=== PATIENT | female | born 1995 | race Caucasian/White ===

== ENCOUNTER 2021-02-18 16:24 | Outpatient (REF) | payer OTHER, SELFPAY ==
[2021-02-18 16:41] LABS: IDNOW Serial# 08D9AD1C; Strep A Nucleic Acid Negative (Negative)
== END 2021-02-18 16:25 | disposition home or self-care (01) ==
LOC: HO.LNP 16:24
PROVIDERS: Visit Provider Physician Assistant Medical
DX: J02.9 Acute pharyngitis, unspecified (principal); Z20.822 Contact with and (suspected) exposure to COVID-19
CPT/HCPCS: 87651; U0003; U0005